=== PATIENT | male | born 1975 | race African-American/Black ===

== ENCOUNTER 2021-04-12 14:59 | Emergency (ER) | payer SELFPAY ==
[~2021-04-12] VITALS: Ht 188 cm; Wt 82.0 kg
[2021-04-12 15:15] VITALS: BP 137/111
[2021-04-12] MEDS ORDERED: SODIUM CHLORIDE 0.9% 1,000 ML IV ONE (15:30)
[2021-04-12] MEDS ORDERED: LORAZEPAM 2MG/ML CPJ IV ONE (15:30)
== END 2021-04-12 16:31 | disposition left against medical advice (07) ==
LOC: ER 15:09
DX: T43.621A Poisoning by amphetamines, accidental (unintentional), initial encounter (principal); R00.0 Tachycardia, unspecified; F15.929 Other stimulant use, unspecified with intoxication, unspecified; Y92.89 Other specified places as the place of occurrence of the external cause
CPT/HCPCS: 99283; J7030